=== PATIENT | female | born 1975 | race Caucasian/White ===

== ENCOUNTER 2018-05-16 20:14 | Emergency (ER) | payer SELFPAY ==
[~2018-05-16] VITALS: Ht 170.2 cm; Wt 64.9 kg
[~2018-05-16 20:14] MED LIST: ALBUTEROL1.25 MG/3 INH/SOL; AMOXICILLIN500 MG PO; AUGMENTIN 875 M1 TAB PO; BENZONATATE200 MG PO; BLM PO; IBUPROFEN800 M1 PO; MEDROL DOSEPAK1 PAC PO; NASONEX0.05 MG/Ac NAS; NASONEX0.05 MG/Ac NS; NOVAPLUS V0.09 MG/Ac INH; PREDNISONE 20MG20 MG PO; TESSALON PERLE100 MG PO; TRAMADOL HCL50 M1 PO; ZITHROMAX Z-PA250 M1 PO
[2018-05-16] MEDS ORDERED: KEFLEX250 M1 PO (21:45)
--- NOTE | 2018-05-16 21:46 | ED ANIMAL BITE/WOUND CHECK ---
History of Present Illness General Chief Complaint: Allergy Symptoms Stated Complaint: "UM I WAS STUNG LAST NIGHT MULTIPLE PLACE" Source: patient, old records Exam Limitations: no limitations Vital Signs & Intake/Output Vital Signs & Intake/Output Vital Signs Date Time Temp Pulse Resp B/P B/P Pulse O2 O2 Flow FiO2 Mean Ox Delivery Rate 05/16 2158 98.0 70 18 132/76 97 Room Air 05/16 2153 Room Air 05/16 2017 98.3 78 18 133/80 96 Room Air ED Intake and Output 05/17 0000 05/16 1200 Intake Total 0 Output Total Balance 0 Intake, Oral 0 Patient 143 lb Weight Allergies Uncoded Allergies: RABBITS (ITCHING, SNEEZING, WATERY EYES 07/22/15) Reconcile Medications Cephalexin (Keflex) 250 MG CAPSULE 1 CAP PO TID CELLULITIS Cetirizine HCl (Zyrtec) 10 MG TABLET 1 TAB PO DAILY ALLERGIES (Reported) Ibuprofen 800 MG TABLET 1 TAB PO Q8 PRN PAIN Tramadol HCl 50 MG TABLET 1-2 TAB PO Q6 PRN pain Triage Note: PT TO TRIAGE S/P BEE STING TO R ANKLE AND R UPPER THIGH LAST NIGHT. C/O REDNESS/IRRITATION/ITCHINESS PER PT. DENIES THROAT IRRITATION, LUNGS CTA. SPEAKING CLEAR SENTENCES. Triage Nurses Notes Reviewed? yes : No Patient currently breastfeeds: No HPI: Patient was stung by an insect yesterday on her right ankle and right upper thigh. This evening her right ankle became red, swollen and warm to touch. There are no chills. She has a throbbing pain when she touches the area. There is no pain when she is not touching the reddened area. There is no radiation of the pain. She rates the pain at 410. Past History Travel History Traveled to [place] past 21 day No Medical History Any Pertinent Medical History? 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 No Review of Systems Review of Systems Constitutional: Reports: no symptoms. Respiratory: Reports: no symptoms. Cardiovascular: Reports: no symptoms. Musculoskeletal: Reports: see HPI. Neurological/Psychological: Reports: no symptoms. Immunologic/Allergic: Reports: no symptoms. Physical Exam Physical Exam General Appearance: well developed/nourished, alert, awake, anxious, mild distress Head: atraumatic, normal appearance Eyes: Bilateral: PERRL, EOMI. Ears, Nose, Throat: normal pharynx, normal ENT inspection, hearing grossly normal Neck: normal inspection, supple, full range of motion Respiratory: normal breath sounds, chest non-tender, no respiratory distress, lungs clear Cardiovascular: regular rate/rhythm, normal peripheral pulses Gastrointestinal: normal bowel sounds, soft, non-tender Back: normal inspection, normal range of motion Extremities: eRYTHEMA, SWELLING, TENDERNESS TO THE RIGHT ANKLE. nO PAIN OUTSIDE OF THE ERYTHEMATOUS AREA. Neurologic/Psych: no motor/sensory deficits, awake, alert, oriented x 3, normal gait, normal mood/affect Skin: intact, normal color, warm/dry Progress Differential Diagnosis: cellulitis Plan of Care: Current Medications Sig/Misha Start time Last Medication Dose Stop Time Status Admin Cephalexin 500 MG ONCE ONE 05/16 2200 AC (Keflex) 05/16 2201 Departure Departure Disposition: HOME OR SELF CARE Condition: Stable Clinical Impression Primary Impression: Cellulitis Referrals: Xenia Aldana APRN (PCP/Family) Additional Instructions: TAKE ANTIBIOTICS PRESCRIBED RETURN IF SYMPTOMS WORSEN OR FOR ANY CONCERNS Departure Forms: Customer Survey General Discharge Information Prescriptions: Current Visit Scripts Cephalexin (Keflex) 1 CAP PO TID #21 CAP
[2018-05-16] MEDS ORDERED: ZYRTEC10 M3 PO (21:54)
[2018-05-16 21:58] VITALS: BP 132/76
== END 2018-05-16 22:00 ==
LOC: ERH 20:14
DX: L03.115 Cellulitis of right lower limb (principal)